=== PATIENT | female | born 1990 | race American Indian/Alaskan Native ===

== ENCOUNTER 2021-09-21 14:23 | Inpatient (IN) | payer MEDICAID ==
[2021-09-21 16:01] LABS: Amphetamine Screen,Urine Negative; Benzodiazepines Screen,Urine Negative; Cocaine Screen,Urine Negative; Methadone Screen,Urine Negative; Opiate Screen,Urine Negative
[2021-09-21 16:02] LABS: Bilirubin,Urine NEG (Negative); Blood,Urine NEG (Negative); Color,Urine Yellow (Yellow); Mucus,Urine FEW /HPF; Protein,Urine <15 mg/dL mg/dL (Negative); Renal Epithelial Cells,Urine 3 /LPF; Urobilinogen,Urine < 2.0 mg/dL (<2.0)
[2021-09-21 16:05] LABS: Basophils % (Auto) 0.3 % (0.0-1.8); Eosinophils # (Auto) 0.1 K/mm3 (0.0-0.4); Eosinophils % (Auto) 1.8 % (0.0-4.3); Hemoglobin 11.7 gm/dl (10.1-14.3); Lymphocytes # (Auto) 1.2 K/mm3 (1.2-5.4); Lymphocytes % (Auto) 14.3 % (13.4-35.0); Mean Corpuscular HGB Conc 35 % (30-34); Mean Corpuscular Volume 98 fl (79-97); Monocytes # (Auto) 0.4 K/mm3 (0.0-0.8); Platelet Count 167 K/mm3 (140-440); Red Blood Count 3.38 M/mm3 (3.65-5.03)
[2021-09-21 16:12] LABS: Alanine Aminotransferase 23 units/L (7-56); Albumin 3.3 g/dL (3.9-5); BUN/Creatinine Ratio 20; Blood Urea Nitrogen 6 mg/dL (7-17); Hemolysis Index 17
[2021-09-21 16:13] LABS: Uric Acid 3.8 mg/dL (3.5-7.6)
[2021-09-21 16:24] LABS: Cannabinoid Screen,Urine Positive
[2021-09-21] MEDS ORDERED: ePHEDrine SULFATE 50 MG/1 ML INJ IV PRN (18:41)
[2021-09-21] MEDS ORDERED: miSOPROStol 200 MCG TAB PR PRN (18:41)
[2021-09-21] MEDS ORDERED: CARBOPROST TROMETHAMINE 250 MCG/1 ML INJ IM PRN (18:41)
[2021-09-21] MEDS ORDERED: TERBUTALINE 1 MG/1 ML INJ SUB-Q PRN (18:41)
[2021-09-21] MEDS ORDERED: MINERAL OIL 30 ML ORAL LIQD PO PRN (18:41)
[2021-09-21] MEDS ORDERED: OXYTOCIN 10 UNIT/1 ML INJ IM PRN (18:41)
[2021-09-21] MEDS ORDERED: METHYLERGONOVINE MALEATE 0.2 MG/ML VIAL IM PRN (18:41)
[2021-09-21] MEDS ORDERED: LOPERAMIDE 2 MG CAP PO PRN (18:41)
[2021-09-21] MEDS ORDERED: NalbUPHINE 10 MG/1 ML INJ IV PRN (18:48)
[2021-09-21] MEDS ORDERED: fentaNYL 100 MCG/2 ML INJ IV PRN (18:48)
[2021-09-21] MEDS ORDERED: ACETAMINOPHEN 325 MG TAB PO PRN (18:48)
[2021-09-21] MEDS ORDERED: ONDANSETRON 4 MG/2 ML INJ IV PRN (18:48)
[2021-09-21] MEDS ORDERED: hydrALAZINE 20 MG/1 ML INJ IV PRN (18:55)
[2021-09-21] MEDS ORDERED: OXYTOCIN DRIP 30 UNITS/500 ML BAG IV SCH ×2 (19:00)
--- NOTE | 2021-09-21 19:09 | History and Physical Report ---
History of Present Illness Date of examination: 09/21/21 Date of admission: 09/21/21 Chief complaint: Sent from office due to elevated blood pressures. History of present illness: 30 year old was sent to L&D from [facility] office due to elevated blood pressures. Patient received care at [facility] and records are available. LMP 12/31/20. EDC 10/07/21. significant for the following: late transfer in to [facility] from [facility] at 23 weeks gestation, UTI (diagnosed in office today), preeclampsia, obesity, vitamin D deficiency. labs are as follows: B+, antibody screen negative, rubella immune, terrence icella immune, hepatitis B surface antigen negative, RPR nonreactive, HIV negative, carrier screen negative, materniT 21 low risk, hemoglobin electrophoresis AA, 1 hour glucose test 76, gonorrhea negative, chlamydia negative, trichomonas negative, pap smear negative, GBS negative. Past History Past Medical History: other (obesity, vitamin D deficiency) Past Surgical History: other (rhinoplasty 2007) [facility]OSS History: denies: abnormal PAP smear, chlamydia, gonorrhea, hepatitis B, hepatitis C, herpes, HIV, syphilis, trichomonas Family/Genetic History: none Social history: lives with family, full code. denies: smoking, alcohol abuse, prescription drug abuse, IV drug use - Obstetrical History Expected Date of Delivery: 10/07/21 Actual Gestation: 37 Week(s) 5 Day(s) : 2 Para: 1 Hx # Term Pregnancies: 1 Number of Pregnancies: 0 Spontaneous Abortions: 0 Induced : 0 Number of Living Children: 1 Medications and Allergies Allergies Allergy/AdvReac Type Severity Reaction Status Date / Time No Known Allergies Allergy Verified 09/21/21 19:25 Active Meds: Active Medications Acetaminophen (Acetaminophen 325 Mg Tab) 650 mg PO Q4H PRN PRN Reason: Pain, Mild (1-3) Carboprost Tromethamine (Carboprost Tromethamine 250 Mcg/1 Ml Inj) 250 mcg IM ONCE PRN PRN Reason: Uterine Bleeding Ephedrine Sulfate (Ephedrine Sulfate 50 Mg/1 Ml Inj) 10 mg IV Q2M PRN PRN Reason: Hypotension Fentanyl (Fentanyl 100 Mcg/2 Ml Inj) 100 mcg IV Q2H PRN PRN Reason: Pain,Severe (7-10) LABOR PAIN Hydralazine HCl (Hydralazine 20 Mg/1 Ml Inj) 5 mg IV Q30MIN PRN PRN Reason: Hypertension Oxytocin/Sodium Chloride (Pitocin/Ns 30 Unit/500ml) 30 units in 500 mls @ 2 mls/hr IV TITR RENZO; Protocol Lactated Ringer's (Lactated Ringers) 1,000 mls @ 125 mls/hr IV DIRECT RENZO Oxytocin/Sodium Chloride (Pitocin/Ns 30 Unit/500ml) 30 units in 500 mls @ 40 mls/hr IV TITR RENZO; Protocol Cefazolin Sodium (Ancef/Ns 1 Gm/50 Ml) 1 gm in 50 mls @ 100 mls/hr IV Q8H RENZO; Protocol Magnesium Sulfate (Magnesium Sulfate 40gm/1000ml) 40 gm in 1,000 mls @ 50 mls/hr IV DIRECT RENZO Magnesium Sulfate (Magnesium Sulfate 4gm/100ml) 4 gm in 100 mls @ 300 mls/hr IV ONCE ONE Stop: 09/21/21 20:11 Labetalol HCl (Labetalol 100 Mg Tab) 100 mg PO BID RENZO Lidocaine (Lidocaine (2%) 20 Mg/1 Ml Vial 20 Ml Mdv) 20 ml INFILTRATI ONCE ONE Stop: 09/21/21 18:42 Loperamide HCl (Loperamide 2 Mg Cap) 2 mg PO ONCE PRN PRN Reason: give with Hemabate Methylergonovine Maleate (Methylergonovine Maleate 0.2 Mg/Ml Vial) 0.2 mg IM ONCE PRN PRN Reason: Uterine Bleeding Mineral Oil (Mineral Oil 30 Ml Oral Liqd) 30 ml PO QHS PRN PRN Reason: Constipation Misoprostol (Misoprostol 200 Mcg Tab) 800 mcg AK ONCE PRN PRN Reason: Uterine Bleeding Nalbuphine HCl (Nalbuphine 10 Mg/1 Ml Inj) 10 mg IV Q2H PRN PRN Reason: Pain, Moderate (4-6) Ondansetron HCl (Ondansetron 4 Mg/2 Ml Inj) 4 mg IV Q8H PRN PRN Reason: Nausea And Vomiting Oxytocin (Oxytocin 10 Unit/1 Ml Inj) 10 unit IM ONCE PRN PRN Reason: Uterine Bleeding Terbutaline Sulfate (Terbutaline 1 Mg/1 Ml Inj) 0.25 mg SUB-Q ONCE PRN PRN Reason: Hyperstimulation/Hypertonicity Review of Systems All systems: negative (irregular contractions) - Vital Signs Vital signs: Vital Signs Pulse Pulse Ox 86 99 09/21/21 15:00 09/21/21 15:00 Temp Pulse Resp BP Pulse Ox 98.2 F 75 16 149/93 98 09/21/21 15:35 09/21/21 19:00 09/21/21 15:35 09/21/21 18:49 09/21/21 19:00 Brisk patellar reflexes bilaterally. Urine drug screen positive for marijuana. Urinalysis: positive nitrites. - Physical Exam Abdomen: Positive: normal appearance, soft. Negative: distention, tenderness, guarding, rigidity Genitourinary (Female): Positive: normal external genitalia, normal perenium. Negative: perineal/vulvar lesions Vagina: Positive: normal moisture Uterus: Positive: enlarged. Negative: tender Anus/Rectum: Positive: normal perianal skin Extremities: Positive: other (brisk patellar reflexes bilaterally), edema. Negative: tenderness - Obstetrical FHR: category 1 Uterine Contraction Monitor Mode: External Cervical Dilatation: 2 (cephalic presentation) Cervical Effacement Percentage: 70 station: -3 Uterine Contraction Pattern: Irregular Uterine Contraction Intensity: Mild Results Result Diagrams: 09/21/21 15:29 09/21/21 15:29 Abnormal lab results 09/21/21 09/21/21 09/21/21 Range/Units 15:29 15:29 15:29 RBC 3.38 L (3.65-5.03) M/mm3 MCV 98 H (79-97) fl MCH 35 H (28-32) pg MCHC 35 H (30-34) % Seg Neutrophils % 78.6 H (40.0-70.0) % Carbon Dioxide 20 L (22-30) mmol/L BUN 6 L (7-17) mg/dL Creatinine 0.3 L (0.6-1.2) mg/dL Alkaline Phosphatase 143 H (35-129) units/L Lactate Dehydrogenase 199 H (91-180) units/L Total Protein 6.1 L (6.3-8.2) g/dL Albumin 3.3 L (3.9-5) g/dL All other labs normal. Assessment and Plan A: at 37 weeks, 5 days gestation. Preeclampsia with severe features. GBS negative. UTI. P: Admit. Continuous EFM. Antibiotics for UTI; urine C&S. BP monitoring. Labetalol 100 mg po BID. Hydralazine IV for severe range BPs. Magnesium sulfate for prevention of seizures. Sheppard catheter, SCDs. Pitocin augmentation of labor. Consulted with Dr. Hutson re: this patient and informed her re: POC.
[2021-09-21] MEDS ORDERED: LIDOCAINE (2%) 20 MG/1 ML VIAL 20 ML MDV INFILTRATI ONE (19:15)
[2021-09-21] MEDS ORDERED: MAGNESIUM SULFATE 4 GM/100 ML BAG IV ONE (19:52)
[2021-09-21] MEDS: LACTATED RINGERS 1,000 ML IV SCH (20:26)
[2021-09-21] MEDS: MAGNESIUM SULFATE 40GM/1000ML 40 GM/1,000 ML BAG IV SCH (21:20)
[2021-09-22] MEDS: ceFAZolin/NS 1 GM/50 ML 1 GM/50 ML BAG IV SCH ×3 (02:15→18:36)
[2021-09-22] MEDS ORDERED: NALOXONE 2 MG/2 ML INJ IV PRN (03:28)
[2021-09-22] MEDS ORDERED: ePHEDrine SULFATE 50 MG/1 ML INJ IV PRN (03:28)
--- NOTE | 2021-09-22 03:28 | Anesthesia Consultation ---
Anesthesia Consult and Med Hx Date of service: 09/22/21 - Airway Anesthetic Teeth Evaluation: Good ROM Head & Neck: Adequate Mental/Hyoid Distance: Adequate Mallampati Class: Class II Intubation Access Assessment: Probably Good - Pulmonary Exam CTA: Yes - Cardiac Exam Cardiac Exam: RRR - Pre-Operative Health Status ASA Pre-Surgery Classification: ASA3 Proposed Anesthetic Plan: Epidural - Pulmonary Hx Asthma: No - Cardiovascular System Hx Hypertension: Yes - Central Nervous System Hx Seizures: No Hx Psychiatric Problems: No - Endocrine Hx Renal Disease: No Hx Hypothyroidism: No Hx Hyperthyroidism: No - Hematic Hx Anemia: No Hx Sickle Cell Disease: No - Other Systems Hx Alcohol Use: No
--- NOTE | 2021-09-22 03:48 | Progress Note ---
Labor Epidural - Labor Epidural Start Time: 03:40 Stop Time: 03:42 Performed by:: LUIS WEBSTER Procedure: Patient is requesting epidural for labor pain. H&P, and labs reviewed. Procedure explained, questions answered, consent obtained. Patient in sitting position with blood pressure cuff and pulse ox on and working. Timeout performed immediately before start of procedure. Sterile Chloraprep prep/drape. 3 mL 1% lidocaine skin wheal at L[3]-L[4]. 17-gauge tuohy epidural needle advanced to [id number] with saline at [7] cm. Epidural dexmedetomidine [30] mcg administered. Epidural catheter advanced to [12] cm, negative aspiration for blood and csf, negative test dose 3 ml 1.5% lidocaine with epinephrine. Sterile sponge and tegaderm applied, followed by tape reinforcement. Patient tolerated procedure well.
[2021-09-22] MEDS ORDERED: fentaNYL-BUPIV 2 MCG/ML-0.125% 200 MCG/100 ML BAG EPIDURAL SCH (04:00)
[2021-09-22] MEDS ORDERED: LANOLIN/ZINC/DIMETHICONE (LANSINOH) 7 GM TP PRN ×2 (05:57)
[2021-09-22] MEDS ORDERED: WITCH HAZEL/ GLYCERIN PAD TP PRN (05:57)
[2021-09-22] MEDS ORDERED: BENZOCAINE/MENTHOL 20/0.5% TOP SPRAY 56 GM TP PRN (05:57)
[2021-09-22] MEDS ORDERED: ONDANSETRON 4 MG/2 ML INJ IV PRN (05:57)
--- NOTE | 2021-09-22 06:04 | Procedure Note ---
OB Delivery Note - Delivery Date of Delivery: 09/22/21 Surgeon: VIKY THAYER Estimated blood loss: other (250 cc) - Vaginal Delivery presentation: vertex Delivery position: OA Intrapartum events: preeclampsia Delivery induction: oxytocin Delivery monitor: external FHT, external uterine Route of delivery: Delivery placenta: spontaneous Delivery cord: nuchal cord, 3 umbilical vessels Episiotomy: none Delivery laceration: 1st degree Delivery repair: vicryl Anesthesia: epidural Delivery comments: Spontaneous vaginal delivery at 04:11 of liveborn female infant weighing 2.6 kg over intact perineum with apgars of 8/9. Epidural anesthesia. Patient on magnesium sulfate due to preeclampsia with severe features. was atr aumatic; nuchal cord times 1, manually reduced. Baby placed skin to skin with mom immediately after delivery. Baby suctioned with bulb syringe and dried with warm towels. Spontaneous cry and respirations. Three vessel cord double clamped and cut. Baby taken to radiant warmer for further suctioning. Spontaneous delivery of intact placenta and membranes at 04:14. EBL 250 cc. Pitocin to IV fluids after delivery of placenta. Fundus firm and midline at 1 FB below umbilicus. Small first degree periurethral laceration repaired with 2-0 vicryl. No other lacerations noted. Vaginal sweep negative. Sponge count correct. Mother and baby stable in birthing room.
[2021-09-22 06:23] LABS: Hemoglobin 12.3 gm/dl (10.1-14.3); Mean Corpuscular HGB Conc 33 % (30-34); Mean Corpuscular Volume 99 fl (79-97); Platelet Count 164 K/mm3 (140-440); Red Blood Count 3.73 M/mm3 (3.65-5.03)
[2021-09-22 07:10] LABS: Hepatitis C Virus Antibody Non-Reactive (NonReactive)
--- NOTE | 2021-09-22 09:25 | Post Anesthesia Evaluation ---
- Post Anesthesia Evaluation Patient Participated: Yes Airway Patent: Yes Stable Respiratory Function: Yes Nausea/Vomiting: No Temp > 96.8F: Yes Pain Manageable: Yes Adequeate Hydration: Yes Anesthesia Complications: No Block Receding Appropriately: Yes
[2021-09-22] MEDS: FERROUS SULFATE 325 MG TAB PO SCH (10:53)
[2021-09-22] MEDS: DOCUSATE SODIUM 100 MG CAP PO SCH ×2 (10:53→22:00)
[2021-09-22] MEDS: HYDROcodone/ACETAMINOPHEN 5-325 MG TAB PO PRN (14:54)
[2021-09-22] MEDS: LACTATED RINGERS 1,000 ML IV SCH (17:38)
[2021-09-22] MEDS: MAGNESIUM SULFATE 40GM/1000ML 40 GM/1,000 ML BAG IV SCH (17:39)
[2021-09-23] MEDS: ceFAZolin/NS 1 GM/50 ML 1 GM/50 ML BAG IV SCH (05:28)
--- NOTE | 2021-09-23 09:33 | Progress Note ---
Assessment and Plan A: day 1 S/P . Preeclampsia with severe features, S/P magnesium sulfate. BP controlled on Labetalol 100 mg po BID. UTI, urine culture pending. UDS positive for marijuana. P: Continue Labetalol 100 mg po BID. Continue antibiotic for UTI. Case management to see patient. Continue routine care. Subjective - Subjective Date of service: 09/23/21 Principal diagnosis: day 1 S/P ; preeclampsia Interval history: Doing well, S/P magnesium sulfate. Patient denies headache, chest pain, or SOB. Patient reports: appetite normal, voiding normally, pain well controlled, flatus, ambulating normally, no dizzy ambulation, no nauseated [place]: doing well Objective - Vital Signs Latest vital signs: Vital Signs Temp Pulse Resp BP BP Pulse Ox Pulse Ox 09/23/21 04:40 98.1 F 72 18 137/92 98 98 09/23/21 03:49 74 128/79 09/23/21 03:48 75 100 09/23/21 01:48 74 18 129/79 129/79 99 09/23/21 01:14 75 99 09/23/21 01:09 83 99 09/23/21 01:04 86 100 09/23/21 00:59 83 99 09/23/21 00:54 78 99 09/23/21 00:49 83 100 09/23/21 00:48 81 18 134/87 134/87 100 09/23/21 00:44 73 99 09/23/21 00:39 74 99 09/23/21 00:34 77 97 09/23/21 00:29 76 98 09/23/21 00:24 80 100 09/23/21 00:19 82 100 09/23/21 00:14 80 99 09/23/21 00:09 83 99 09/23/21 00:04 78 99 09/22/21 23:59 78 99 09/22/21 23:54 78 98 09/22/21 23:49 81 99 09/22/21 23:48 98.3 F 89 18 147/91 147/91 09/22/21 23:44 82 99 09/22/21 23:39 76 99 09/22/21 23:34 77 99 09/22/21 23:29 76 99 09/22/21 23:24 75 99 09/22/21 23:19 75 98 09/22/21 23:14 75 99 09/22/21 23:09 76 99 09/22/21 23:04 78 98 09/22/21 22:59 75 99 09/22/21 22:54 75 99 09/22/21 22:49 70 99 09/22/21 22:48 75 18 139/91 139/91 99 09/22/21 22:44 77 99 09/22/21 22:39 77 99 09/22/21 22:34 79 99 09/22/21 22:29 77 100 09/22/21 22:24 75 99 09/22/21 22:19 75 99 09/22/21 22:14 74 99 09/22/21 22:09 76 99 09/22/21 22:04 77 99 09/22/21 22:00 77 153/93 09/22/21 21:59 72 99 09/22/21 21:54 74 99 09/22/21 21:49 80 99 09/22/21 21:48 77 153/93 09/22/21 21:46 77 18 153/93 99 09/22/21 21:44 73 99 09/22/21 21:39 90 100 09/22/21 21:34 75 99 09/22/21 21:29 78 99 09/22/21 21:24 76 100 09/22/21 21:23 71 130/83 09/22/21 21:19 77 100 09/22/21 21:14 75 99 09/22/21 21:09 77 99 09/22/21 21:04 77 99 09/22/21 20:59 79 99 09/22/21 20:54 73 100 09/22/21 20:49 80 100 09/22/21 20:48 81 137/105 09/22/21 20:46 81 18 137/105 09/22/21 20:44 77 99 09/22/21 20:39 74 100 09/22/21 20:34 70 99 09/22/21 20:29 78 99 09/22/21 20:24 76 99 09/22/21 20:19 75 100 09/22/21 20:14 73 99 09/22/21 20:09 81 99 09/22/21 20:04 72 99 09/22/21 19:59 72 100 09/22/21 19:54 71 99 09/22/21 19:49 88 100 09/22/21 19:48 85 114/77 09/22/21 19:46 98.6 F 85 18 114/77 100 100 09/22/21 19:44 66 99 09/22/21 19:39 68 99 09/22/21 19:34 68 100 09/22/21 19:29 72 99 09/22/21 19:24 67 100 09/22/21 19:19 73 100 09/22/21 19:14 78 98 09/22/21 19:09 80 99 09/22/21 19:04 80 99 09/22/21 18:59 69 99 09/22/21 18:54 70 99 09/22/21 18:49 69 99 09/22/21 18:48 68 128/77 09/22/21 18:44 73 100 09/22/21 18:39 72 99 09/22/21 18:35 97.8 F 71 14 118/73 100 09/22/21 18:34 74 100 09/22/21 18:29 66 99 09/22/21 18:24 72 100 09/22/21 18:19 65 99 09/22/21 18:14 64 99 09/22/21 18:09 67 99 09/22/21 18:04 72 100 09/22/21 18:00 14 09/22/21 17:59 66 99 09/22/21 17:54 68 99 09/22/21 17:49 63 99 09/22/21 17:48 69 118/73 09/22/21 17:44 69 98 09/22/21 17:39 66 99 09/22/21 17:34 73 99 09/22/21 17:29 69 99 09/22/21 17:24 68 99 09/22/21 17:19 68 98 09/22/21 17:14 70 99 09/22/21 17:09 86 97 09/22/21 17:04 68 98 09/22/21 17:00 14 09/22/21 16:59 71 98 09/22/21 16:54 71 99 09/22/21 16:49 69 98 09/22/21 16:48 76 113/72 09/22/21 16:44 71 98 09/22/21 16:39 70 98 09/22/21 16:34 71 98 09/22/21 16:29 76 99 09/22/21 16:24 68 98 09/22/21 16:19 71 98 09/22/21 16:14 74 98 09/22/21 16:09 69 98 09/22/21 16:04 75 98 09/22/21 16:00 14 09/22/21 15:59 77 99 09/22/21 15:54 80 100 09/22/21 15:49 81 100 09/22/21 15:48 76 133/84 09/22/21 15:44 81 99 09/22/21 15:39 82 100 09/22/21 15:34 82 100 09/22/21 15:29 73 98 09/22/21 15:24 73 98 09/22/21 15:19 75 97 09/22/21 15:14 73 99 09/22/21 15:09 76 98 09/22/21 15:04 73 97 09/22/21 14:59 72 98 09/22/21 14:54 97.7 F 74 14 98 09/22/21 14:49 76 99 09/22/21 14:48 79 126/75 09/22/21 14:44 74 98 09/22/21 14:39 88 98 09/22/21 14:34 75 98 09/22/21 14:29 74 98 09/22/21 14:24 72 98 09/22/21 14:19 81 99 09/22/21 14:14 80 99 09/22/21 14:09 71 98 09/22/21 14:04 76 98 09/22/21 13:59 88 99 09/22/21 13:54 81 100 09/22/21 13:49 82 100 09/22/21 13:48 72 122/78 09/22/21 13:44 80 99 09/22/21 13:39 73 100 09/22/21 13:34 76 99 09/22/21 13:29 79 99 09/22/21 13:24 81 98 09/22/21 13:19 75 98 09/22/21 13:14 89 96 09/22/21 13:09 75 97 09/22/21 13:04 76 98 09/22/21 13:00 14 09/22/21 12:59 76 99 09/22/21 12:54 83 99 09/22/21 12:49 73 98 09/22/21 12:48 72 131/77 09/22/21 12:44 72 98 09/22/21 12:39 77 99 09/22/21 12:34 75 99 09/22/21 12:29 74 100 09/22/21 12:24 81 99 09/22/21 12:19 76 99 09/22/21 12:14 81 99 09/22/21 12:09 78 98 09/22/21 12:04 89 99 09/22/21 12:00 14 09/22/21 11:59 76 98 09/22/21 11:54 77 98 09/22/21 11:49 78 98 09/22/21 11:48 74 128/81 09/22/21 11:44 79 96 09/22/21 11:39 73 97 09/22/21 11:34 85 98 09/22/21 11:29 73 97 09/22/21 11:24 82 99 09/22/21 11:19 72 97 09/22/21 11:14 71 97 09/22/21 11:09 72 97 09/22/21 11:04 71 97 09/22/21 10:59 70 98 09/22/21 10:54 79 99 09/22/21 10:53 84 112/73 09/22/21 10:50 97.8 F 84 14 112/73 99 09/22/21 10:49 75 98 09/22/21 10:48 81 112/73 09/22/21 10:45 74 107/74 09/22/21 10:44 71 99 09/22/21 10:39 73 98 09/22/21 10:34 73 98 09/22/21 10:29 78 98 09/22/21 10:24 78 99 09/22/21 10:19 84 100 09/22/21 10:14 85 99 09/22/21 10:09 77 98 09/22/21 10:04 73 99 09/22/21 10:00 16 09/22/21 09:59 77 99 09/22/21 09:54 76 99 09/22/21 09:49 80 99 09/22/21 09:48 79 137/85 09/22/21 09:44 75 99 09/22/21 09:39 86 99 09/22/21 09:34 82 100 09/22/21 09:29 84 100 09/22/21 09:24 85 99 09/22/21 09:19 81 99 09/22/21 09:14 82 99 09/22/21 09:09 86 99 09/22/21 09:04 79 100 09/22/21 09:00 16 09/22/21 08:59 75 99 09/22/21 08:54 77 99 09/22/21 08:49 79 100 09/22/21 08:44 78 100 09/22/21 08:43 80 100 09/22/21 08:38 70 99 09/22/21 08:33 76 100 Intake and Output 09/22/21 09/23/21 09/23/21 22:59 07:59 15:59 Intake Total Output Total Balance Intake: IV MAGNESIUM SULFATE 40GM/ 1000ML 40 gm In 1,000 ml @ 2 GM/HR 50 mls/hr IV DIRECT RENZO Rx#:[id number] Oral Output: Urine Indwelling Catheter Uretheral (Sheppard) Other: Total, Intake Amount Total, Output Amount - Exam Cardiovascular: Present: Regular rate, No murmurs Lungs: Present: Clear to auscultation Abdomen: Present: normal appearance, soft. Absent: distention, tenderness, guarding, rigidity Uterus: Present: normal, firm, fundal height below umbilicus (fundus firm and midline at 2 FB below umbilicus). Absent: bogginess, tenderness Extremities: Absent: tenderness, edema - Labs Labs: Abnormal lab results 09/22/21 09/22/21 09/23/21 Range/Units 13:00 18:35 01:39 Magnesium 4.50 H 4.30 H 4.50 H (1.7-2.3) mg/dL
[2021-09-23] MEDS: DOCUSATE SODIUM 100 MG CAP PO SCH ×2 (10:13→22:04)
[2021-09-23] MEDS: FERROUS SULFATE 325 MG TAB PO SCH (10:13)
[2021-09-23] MEDS: HYDROcodone/ACETAMINOPHEN 5-325 MG TAB PO PRN (10:19)
--- NOTE | 2021-09-24 08:59 | Ultrasound Report ---
ULTRASOUND OB FOLLOW-UP INDICATION / CLINICAL INFORMATION: BPP. well being Clinical Gestational Age (GA) in weeks.days: 37.3 TECHNIQUE: Transabdominal. COMPARISON: None available. FINDINGS: NUMBER: Single PRESENTATION: cephalic PLACENTA not evaluated. MATERNAL ADNEXA: No significant abnormality. AMNIOTIC FLUID VOLUME: normal AMNIOTIC FLUID INDEX (MACIE) in cm (if measured): 14.5 ANATOMY: anatomical survey was not performed. MEASUREMENTS: - Biparietal Diameter = 4.0 cm = 36.4 weeks.days - Head Circumference = 32.7 cm = 37.0 weeks.days - Abdominal Circumference = 32.2 cm = 36.1 weeks.days - Femur Length = 7.3 cm = 37.2 weeks.days - Estimated Weight (in grams, if calculated): 2975 - Heart Rate (beats per minute): 149 ADDITIONAL FINDINGS: None. PERCENTILE ESTIMATED WEIGHT (if calculated): 36 AVERAGE ULTRASOUND AGE (AUA) in weeks.days = 36.5 IMPRESSION: 1. Single intrauterine with AUA of 36.5 weeks.days 2. No significant sonographic abnormality. ULTRASOUND BIOPHYSICAL PROFILE INDICATION: BPP. well being COMPARISON: None available. FINDINGS: heart rate is 149 beats per minute. breathing movement = 2 Gross body movement = 2 tone = 2 Qualitative amniotic fluid volume = 2 IMPRESSION: biophysical profile = 02/18 Signer Name: Richar Coburn Jr, MD Signed: 09/24/2021 8:55 AM Workstation Name: [id number]
[2021-09-24 10:28] VITALS: BP 135/87
[2021-09-24] MEDS: FERROUS SULFATE 325 MG TAB PO SCH (10:32)
[2021-09-24] MEDS: DOCUSATE SODIUM 100 MG CAP PO SCH (10:32)
--- NOTE | 2021-09-24 10:34 | Progress Note ---
Assessment and Plan A: PP Day #2 Preeclampsia +UDS (THC) P: Follow Routine Orders Continue Labetalol 100mg PO BID (script called in to [facility] in [place], [place]) D/C home today after Soda Worker Consult RTO in 2 Weeks Subjective - Subjective Date of service: 09/24/21 Principal diagnosis: day 1 S/P ; preeclampsia Patient reports: appetite normal, voiding normally, pain well controlled, flatus, bowel movement, ambulating normally, other (Denies HAs, visual changes, N&V, and epigastic pain) : doing well Objective - Vital Signs Latest vital signs: Vital Signs Temp Pulse Resp BP BP Pulse Ox Pulse Ox 09/24/21 08:45 98.6 F 75 18 135/87 99 09/24/21 05:15 98 09/24/21 04:48 98.1 F 61 20 134/82 96 09/24/21 03:35 97 09/24/21 01:35 97 09/24/21 00:39 97.9 F 67 20 127/83 98 09/23/21 23:15 97 09/23/21 22:04 66 129/89 98 09/23/21 20:41 98.1 F 66 20 129/89 98 09/23/21 19:50 98 09/23/21 16:12 98.9 F 73 18 135/93 97 09/23/21 12:47 98.2 F 63 18 142/89 99 Intake and Output 09/23/21 09/24/21 09/24/21 22:59 06:59 14:59 Intake Total 440 600 480 Balance 440 600 480 Intake: Oral 440 360 120 Intake, Free Water 240 360 Other: Total, Intake Amount 120 360 120 # Voids Void 1 1 - Exam Breasts: Present: normal Cardiovascular: Present: Regular rate Lungs: Present: Clear to auscultation, Normal air movement Abdomen: Present: normal appearance, soft, normal bowel sounds Uterus: Present: normal, firm, fundal height below umbilicus Extremities: Present: normal
--- NOTE | 2021-09-24 10:35 | Discharge Summary ---
Providers - Providers Date of Admission: 09/21/21 18:41 Date of discharge: 09/24/21 Attending physician: SIERRA ROYAL 09/21/21 18:54 Consult to Case Management [CONS] Routine Services Needed at Discharge: Tapper Helper Notified:: COMPUTER INPUT Phone number called:: [phone] Was contact made?: No Time called:: 16:55 Comment:: Positive drug screen Additional Physician Instructions: SEE CHART FOR ORDER Primary care physician: SIERRA ROYAL Hospitalization Reason for admission: induction of labor Delivery: Episiotomy: none Laceration: 1st degree Other procedures: none complications: none Discharge diagnosis: IUP at term delivered baby: female Condition at discharge: Good Disposition: 01 HOME / SELF CARE / HOMELESS Plan - Discharge Medications Prescriptions: labetaloL [Labetalol 100mg TAB] 100 mg PO BID 30 Days #60 - Provider Discharge Summary Activity: routine, no sex for 6 weeks, no heavy lifting 4 weeks, no strenuous exercise Diet: routine Instructions: routine Additional instructions: [] Smoking cessation referral if applicable(refer to patient education folder for contact #) [] Refer to [facility] Booklet Call your doctor immediately for: * Fever > 100.5 * Heavy vaginal bleeding ( >1 pad per hour) * Severe persistent headache * Shortness of breath * Reddened, hot, painful area to leg or breast * Drainage or odor from incision. * Keep incision clean and dry at all times and follow doctor's instructions regarding bathing/showering - Follow up plan Follow up: SIERRA ROYAL MD [Primary Care Provider] - 14 Days
== END 2021-09-24 15:58 | disposition home or self-care (01) | DRG 775 ==
LOC: TRG 14:23 → APU 14:24 → LD 18:41 → TRG 18:41 → LD 19:12 → OB 09-23 04:27
PROVIDERS: ADMIT Obstetrics & Gynecology; ATTEND Obstetrics & Gynecology
PROC: 10E0XZZ Delivery of Products of Conception, External Approach (ICD-10-PCS; principal; 2021-09-22)
PROC: 3E0R3BZ Introduction of Anesthetic Agent into Spinal Canal, Percutaneous Approach (ICD-10-PCS; 2021-09-22)
PROC: 00HU33Z Insertion of Infusion Device into Spinal Canal, Percutaneous Approach (ICD-10-PCS; 2021-09-22)
PROC: 3E033VJ Introduction of Other Hormone into Peripheral Vein, Percutaneous Approach (ICD-10-PCS; 2021-09-22)
PROC: 0HQ9XZZ Repair Perineum Skin, External Approach (ICD-10-PCS; 2021-09-22)
DX: O14.14 Severe pre-eclampsia complicating childbirth (principal); Z3A.37 37 weeks gestation of pregnancy; Z37.0 Single live birth; Z20.822 Contact with and (suspected) exposure to COVID-19; O23.43 Unspecified infection of urinary tract in pregnancy, third trimester; N39.0 Urinary tract infection, site not specified; O69.81X0 Labor and delivery complicated by cord around neck, without compression, not applicable or unspecified; O70.0 First degree perineal laceration during delivery; O99.324 Drug use complicating childbirth; F12.90 Cannabis use, unspecified, uncomplicated
CPT/HCPCS: 36415; 76816; 76819; 80053; 80307; 81001; 83615; 83735; 84550; 85014; 85018; 85025; 85027; 86592; 86803; 86850; 86900; 86901; 87076; 87086; 87186; G0378; J0690; J2590; J3010; J3475; J7120; U0003